=== PATIENT | male | born 1955 | race Caucasian/White ===

== ENCOUNTER 2020-05-16 14:49 | Outpatient (CLI) | payer MEDICARE, SELFPAY ==
[2020-05-18 02:52] LABS: SARS-CoV-2 RNA PCR Negative
== END 2020-05-16 14:50 | disposition home or self-care (01) ==
PROVIDERS: PCP Family Medicine; Visit Provider Family Medicine
DX: Z20.828 Contact with and (suspected) exposure to other viral communicable diseases (principal)
CPT/HCPCS: 87635; C9803; U0003

== ENCOUNTER 2020-07-10 08:07 | Outpatient (CLI) | payer MEDICARE, SELFPAY ==
[2020-07-10 08:16] LABS: Basophils Absolute Auto 0.03 K/mm3 (0.00-0.10); Basophils Percent Auto 0.5 % (0.0-1.0); Eosinophils Absolute Auto 0.19 K/mm3 (0.02-0.50); Eosinophils Percent Auto 3.5 % (1.0-6.0); Hematocrit 46.4 % (37.0-46.0); Hemoglobin 14.6 g/dL (12.4-15.3); Immature Granulocyte Absolute 0.02 K/mm3 (0.00-0.00); Immature Granulocyte Percent A 0.4 % (0.0-0.0); Lymphocytes Absolute Auto 1.46 K/mm3 (1.10-4.50); Lymphocytes Percent Auto 26.5 % (18.0-42.0); Mean Corpuscular HGB Conc 31.5 g/dL (32.0-36.0); Mean Corpuscular Hemoglobin 29.1 pg (27.0-31.0); Mean Corpuscular Volume 92.6 fL (78.0-102.0); Mean Platelet Volume 10.6 fl (8.7-11.0); Monocytes Absolute Auto 0.41 K/mm3 (0.10-0.90); Monocytes Percent Auto 7.5 % (2.0-11.0); Neutrophils Absolute Auto 3.4 K/mm3 (1.7-7.2); Neutrophils Percent Auto 61.6 % (50.0-70.0); Platelet Count Result 161 K/mm3 (150-420); Red Blood Count 5.01 M/mm3 (4.70-6.10); Red Cell Distribution Width 12.6 % (11.6-14.4); White Blood Count 5.5 K/mm3 (4.8-10.8)
[2020-07-10 09:19] LABS: Alanine Aminotransferase 22 U/L (16-63); Albumin Level 3.5 g/dL (3.4-5.0); Alkaline Phosphatase 62 U/L (46-116); Anion Gap 5 mmol/L (8-16); Aspartate Amino Transferase 20 U/L (15-37); Bilirubin,Total 0.4 mg/dL (0.00-1.00); Blood Urea Nitrogen 25 mg/dL (7-18); Calcium 8.6 mg/dL (8.5-10.1); Carbon Dioxide 32 mmol/L (21-32); Chloride 107 mmol/L (98-108); Cholesterol 198 mg/dL (0-200); Estimated Glomerular Filt Rate > 60; Glucose 83 mg/dL (70-99); HDL Direct 57 mg/dL (40-60); LDL Cholesterol Calculated 127 mg/dL (<130); Osmolality Calculated 301 mOsm/kg (285-295); Potassium 4.1 mmol/L (3.5-5.1); Sodium 144 mmol/L (136-145); Total Protein 6.1 g/dL (6.4-8.2); Triglycerides 72 mg/dL (0-150)
[2020-07-10 10:07] LABS: Thyroid Stimulating Hormone Reflex 1.49 u/IU/mL (0.36-3.74)
== END 2020-07-10 08:08 | disposition home or self-care (01) ==
LOC: CHSLAB 08:09
PROVIDERS: PCP Family Medicine; Visit Provider Family Medicine
DX: K58.9 Irritable bowel syndrome, unspecified (principal); Z82.49 Family history of ischemic heart disease and other diseases of the circulatory system; F41.9 Anxiety disorder, unspecified
CPT/HCPCS: 36415; 80053; 80061; 84443; 85025

== ENCOUNTER 2021-03-28 09:00 | Outpatient (CLI) | payer MEDICARE, SELFPAY ==
[2021-03-28 09:11] LABS: Add Urine Microscopic? NO; Appearance Urine Clear (Clear); Basophils Absolute Auto 0.04 K/mm3 (0.00-0.10); Basophils Percent Auto 0.7 % (0.0-1.0); Bilirubin Urine Negative (Negative); Blood Urine Negative (Negative); Color Urine Yellow (Yellow); Eosinophils Absolute Auto 0.16 K/mm3 (0.02-0.50); Eosinophils Percent Auto 2.8 % (1.0-6.0); Glucose Urine UA Negative (Negative); Hematocrit 45.6 % (37.0-46.0); Hemoglobin 14.7 g/dL (12.4-15.3); Immature Granulocyte Absolute 0.01 K/mm3 (0.00-0.00); Immature Granulocyte Percent A 0.2 % (0.0-0.0); Ketones Urine Negative (Negative); Leukocyte Esterase Ur Negative LEU/UL (Negative); Lymphocytes Absolute Auto 1.47 K/mm3 (1.10-4.50); Lymphocytes Percent Auto 25.9 % (18.0-42.0); Mean Corpuscular HGB Conc 32.2 g/dL (32.0-36.0); Mean Corpuscular Hemoglobin 29.1 pg (27.0-31.0); Mean Corpuscular Volume 90.3 fL (78.0-102.0); Mean Platelet Volume 10.7 fl (8.7-11.0); Monocytes Absolute Auto 0.54 K/mm3 (0.10-0.90); Monocytes Percent Auto 9.5 % (2.0-11.0); Neutrophils Absolute Auto 3.5 K/mm3 (1.7-7.2); Neutrophils Percent Auto 60.9 % (50.0-70.0); Nitrate Urine Negative (Negative); Platelet Count Result 185 K/mm3 (150-420); Protein Urine Negative (Negative); Red Blood Count 5.05 M/mm3 (4.70-6.10); Red Cell Distribution Width 13.2 % (11.6-14.4); Specific Grav Ur 1.025 (1.010-1.020); Urobilinogen Urine 0.2 mg/dL (0.2-1.0); White Blood Count 5.7 K/mm3 (4.8-10.8)
[2021-03-28 09:40] LABS: Alanine Aminotransferase 31 U/L (16-63); Albumin Level 3.5 g/dL (3.4-5.0); Alkaline Phosphatase 63 U/L (46-116); Anion Gap 9 mmol/L (8-16); Aspartate Amino Transferase 20 U/L (15-37); Bilirubin,Total 0.5 mg/dL (0.00-1.00); Blood Urea Nitrogen 29 mg/dL (7-18); Calcium 8.6 mg/dL (8.5-10.1); Carbon Dioxide 30 mmol/L (21-32); Chloride 106 mmol/L (98-108); Estimated Glomerular Filt Rate > 60; Glucose 77 mg/dL (70-99); Osmolality Calculated 304 mOsm/kg (285-295); Potassium 4.2 mmol/L (3.5-5.1); Sodium 145 mmol/L (136-145); Total Protein 6.4 g/dL (6.4-8.2)
== END 2021-03-28 09:01 | disposition home or self-care (01) ==
PROVIDERS: PCP Family Medicine; Visit Provider Family Medicine
DX: R42 Dizziness and giddiness (principal)
CPT/HCPCS: 36415; 80053; 81003; 85025

== ENCOUNTER 2021-05-02 09:59 | Outpatient (CLI) | payer MEDICARE, SELFPAY ==
--- NOTE | 2021-05-02 10:01 | ECG_ITS ---
Measurements Intervals [place] Rate: 72 P: 69 KS: 151 QRS: 32 QRSD: 94 T: 27 QT: 363 QTc: 400 Interpretive Statements SINUS RHYTHM RSR' IN V1 OR V2, PROBABLY NORMAL VARIANT VOLTAGE CRITERIA FOR LVH BORDERLINE ECG Electronically Signed On 05-02-2021 11:55:57 CDT by Damian Alanis D.O.
[2021-05-02 10:21] LABS: Basophils Absolute Auto 0.02 K/mm3 (0.00-0.10); Basophils Percent Auto 0.4 % (0.0-1.0); Eosinophils Absolute Auto 0.16 K/mm3 (0.02-0.50); Eosinophils Percent Auto 3.1 % (1.0-6.0); Hematocrit 47.2 % (37.0-46.0); Hemoglobin 14.8 g/dL (12.4-15.3); Immature Granulocyte Absolute 0.01 K/mm3 (0.00-0.00); Immature Granulocyte Percent A 0.2 % (0.0-0.0); Lymphocytes Absolute Auto 1.44 K/mm3 (1.10-4.50); Lymphocytes Percent Auto 27.7 % (18.0-42.0); Mean Corpuscular HGB Conc 31.4 g/dL (32.0-36.0); Mean Corpuscular Hemoglobin 28.6 pg (27.0-31.0); Mean Corpuscular Volume 91.3 fL (78.0-102.0); Mean Platelet Volume 11.1 fl (8.7-11.0); Monocytes Absolute Auto 0.48 K/mm3 (0.10-0.90); Monocytes Percent Auto 9.2 % (2.0-11.0); Neutrophils Absolute Auto 3.1 K/mm3 (1.7-7.2); Neutrophils Percent Auto 59.4 % (50.0-70.0); Platelet Count Result 181 K/mm3 (150-420); Red Blood Count 5.17 M/mm3 (4.70-6.10); Red Cell Distribution Width 12.8 % (11.6-14.4); White Blood Count 5.2 K/mm3 (4.8-10.8)
[2021-05-02 12:02] LABS: Alanine Aminotransferase 31 U/L (16-63); Albumin Level 3.6 g/dL (3.4-5.0); Alkaline Phosphatase 68 U/L (46-116); Anion Gap 9 mmol/L (8-16); Aspartate Amino Transferase 20 U/L (15-37); Bilirubin,Total 0.4 mg/dL (0.00-1.00); Blood Urea Nitrogen 24 mg/dL (7-18); Calcium 8.7 mg/dL (8.5-10.1); Carbon Dioxide 29 mmol/L (21-32); Chloride 105 mmol/L (98-108); Estimated Glomerular Filt Rate > 60; Glucose 74 mg/dL (70-99); Osmolality Calculated 299 mOsm/kg (285-295); Potassium 4.6 mmol/L (3.5-5.1); Sodium 143 mmol/L (136-145); Total Protein 6.4 g/dL (6.4-8.2)
[2021-05-02 12:09] LABS: Thyroid Stimulating Hormone Reflex 1.12 u/IU/mL (0.36-3.74)
== END 2021-05-02 10:00 | disposition home or self-care (01) ==
LOC: CHSLAB 10:01
PROVIDERS: PCP Family Medicine; Visit Provider Family Medicine
DX: R42 Dizziness and giddiness (principal); F41.9 Anxiety disorder, unspecified
CPT/HCPCS: 36415; 80053; 84443; 85025; 93005

== ENCOUNTER 2021-06-04 09:35 | Outpatient (CLI) | payer MEDICARE, SELFPAY ==
--- NOTE | 2021-06-04 10:11 | ECHO_ITS ---
Patient Info Name: Arjun Sheppard Age: 66 years : 1955 Gender: Male Ht: 69 in Wt: 150 lbs BSA: 1.82 m2 HR: 65 bpm BP: 132 / 86 mmHg Heart Rhythm: Sinus Rhythm Exam Date: 06/04/2021 10:29 AM Exam Location: [facility] Pulmonary Patient Status: Outpatient Admit Date: 06/04/2021 Staff Ordering Physician: Damian Alanis DO Swift Tender: ALEJANDRO Attending Provider: Damian Alanis DO Exam Type: CA echo doppler color flow Study Info Indications R94.31 - Abnormal electrocardiogram ECG EKG Complete two-dimensional, color flow and Doppler transthoracic echocardiogram is performed. Summary 1. Complete two-dimensional, color flow and Doppler transthoracic echocardiogram is performed. 2. Left ventricular chamber dimension is normal. 3. Left ventricular systolic function is normal, estimated at 60-65%. 4. The left ventricular diastolic function is grade I diastolic dysfunction. 5. E/e' 7 is not elevated. 6. There is trace aortic valve regurgitation. 7. No pulmonary hypertension, estimated pulmonary arterial systolic pressure is 22 mmHg. Left Ventricle E/e' 7 is not elevated. Left ventricular chamber dimension is normal. Left ventricular systolic function is normal, estimated at 60-65%. The left ventricular diastolic function is grade I diastolic dysfunction. Right Ventricle Right ventricular chamber dimension is normal. Right ventricular systolic function is normal. Left Atria Left atrial chamber dimension is normal. Right Atria Right atrial chamber dimension is normal. Aortic Valve The aortic valve is trileaflet. There is no aortic valve stenosis. There is trace aortic valve regurgitation. Pulmonic Valve There is no pulmonic regurgitation. Mitral Valve There is no mitral valve stenosis. There is no mitral valve regurgitation. Tricuspid Valve There is no tricuspid valve regurgitation. No pulmonary hypertension, estimated pulmonary arterial systolic pressure is 22 mmHg. Pericardium/Pleural There is no pericardial effusion. Inferior Vena Cava Normal inferior vena cava with >50% collapse upon inspiration consistent with normal right atrial pressure, 5 mmHg. Aorta The aortic root size at the sinus of Valsalva is normal. Left Ventricular Outflow Tract Name Value Normal LVOT 2D LVOT Diameter 2.0 cm LVOT Doppler LVOT Peak Gradient 2 mmHg LVOT Mean Gradient 1 mmHg LVOT VTI 22 cm LVOT VTI/AV VTI Ratio 0.8 LVOT Stroke Volume 69 ml LVOT CO 10.7 l/min LVOT CI 5.9 l/min/m2 Pulmonic Valve Name Value Normal PV Doppler PV Peak Gradient 2 mmHg PV Regurgitation Doppler
== END 2021-06-04 09:36 | disposition home or self-care (01) ==
PROVIDERS: PCP Family Medicine; Visit Provider Internal Medicine Cardiovascular Disease
DX: R94.31 Abnormal electrocardiogram [ECG] [EKG] (principal)
CPT/HCPCS: 93306

== ENCOUNTER 2021-08-06 08:30 | Outpatient (RCR) | payer MEDICARE, SELFPAY ==
--- NOTE | 2021-08-06 08:55 | PTOPEVAL ---
Thank you for referring Arjun Sheppard to [facility] The patient is scheduled to be seen for therapy? __1__x/week for 1 additional visit. Please review, sign, date and return this plan of care DERICK. I agree with and certify that the following plan of care is medically necessary. Referring Physician Date Admitting Provider: Attending Provider: Gilmar Rios MD Referring Provider: *PT Outpatient Evaluation Start: 08/06/21 07:55 Freq: Status: Active Protocol: Document 08/06/21 08:02 MERCEDES (Rec: 08/06/21 08:55 MERCEDES [id number]) Therapy Assessment Status Assessment Status Assessment Status Evaluation Evaluation Information Problem Diagnosis dizziness, giddiness Onset 11/26/20 Subjective Information Pt. recalls occassional bouts Query Text:As Reported By Patient/ of dizziness that has occurred Family about 4 times this year. His first episode was in November and last was in June. Pt. reports that most episodes takes place while looking at a computer screen or T.V. screen. He states that dizziness is severe and brief. He reports that he has vomitted from dizziness before . Pt. reports that he has no significant cardiac or BP issues. He reports that his goal for therpay is to decrease the dizziness. Prior Level of Function Comments Additional Prior Level of Function Pt. recalls no recent falls Comments due to dizziness. He had recent eye check which was negative for any visual issues . Pain Assessment Timing of Pain Assessment Timing of Pain Assessment Pre-Treatment Self Report Self Report Pain Level 0 Pain Score Pain Score 0: Self Report Cervical and Lumbar ROM Cervical ROM Cervical Flexion (0-60) 50 Query Text:Active in Degrees Cervical Extension (0-70) 50 Query Text:Active in Degrees Cervical Lateral Flexion Right (0-50) 35 Query Text:Active in Degrees Cervical Lateral Flexion Left (0-50) 35 Query Text:Active in Degrees Cervical Rotation Right (0-90) 70 Query Text:Active in Degrees Cervical Rotation Left (0-90) 70 Query Text:Active in Degrees Vestibular Evaluation Vestibular Medical Information Past Vestibular History Visual Issues Recent Symptoms
== END 2021-08-12 14:27 | disposition home or self-care (01) ==
LOC: CHSPT 08:30
PROVIDERS: PCP Family Medicine; Visit Provider Family Medicine
DX: R42 Dizziness and giddiness (principal)
CPT/HCPCS: 97112; 97161

== ENCOUNTER 2021-10-08 08:38 | Outpatient (CLI) | payer MEDICARE, SELFPAY ==
--- NOTE | ~2021-10-08 | NM_ITS ---
EXAMINATION: NM jorge stress w perfusion DATE: 10/08/2021 11:17 INDICATION: Ventricular tachycardia TECHNIQUE: Rest images were obtained following intravenous administration of 9.44 mCi Tc99m tetrofosm in (Myoview). The patient was infused intravenously with Lexiscan (Regadenoson). Then, 30.8 mCi Tc99m tetrofosmin (Myoview) was administered intravenously, and stress images were obtained. Data was kiah nstructed into short axis and horizontal and vertical long axis SPECT images. Gated SPECT images were also obtained. COMPARISON: None. FINDINGS: There is no definite reversible or fixed perfusion abnormality to suggest ischemia or infar ction. There is normal left ventricular chamber size, wall motion and ejection fraction. Left ventr icular ejection fraction measures >70%. IMPRESSION: 1. Normal myocardial perfusion at rest and during stress. 2. Left ventricular ejection fraction measuring >70%. Reviewed, dictated and finalized at location A. ITY COMPLIANCE MANAGER
--- NOTE | 2021-10-08 08:55 | EST_ITS ---
Patient Info Name: Arjun Sheppard Age: 66 years : 1955 Gender: Male Ht: 69 in Wt: 147 lbs BSA: 1.80 m2 HR: 65 bpm BP: 140 / 89 mmHg Heart Rhythm: Sinus Rhythm Exam Date: 10/08/2021 9:42 AM Exam Location: [facility] Stress Patient Status: Outpatient Admit Date: 10/08/2021 Staff Ordering Physician: Damian Alanis DO Attending Provider: Damian lAanis DO Exercise Technologist: Yeni Kincaid CT Exercise Physician: Damian Alanis DO Exam Type: CA stress jorge w NM Study Info Indications I47.2 - Ventricular tachycardia A regadenoson stress test was performed. Summary 1. 1. Negative lexiscan stress test for ischemic ST changes by ECG criteria. 2. 2. Stable hemodynamics throughout the test. 3. 3. Nuclear scan to follow and will be reported separately. Please correlate with it. 4. 4. Patient informed of the above results. Protocol: Lexiscan Stress ECG Details Stage: REST Duration (min): 0 min : 54 sec HR (bpm): 65 SBP (mmHg): 127 DBP (mmHg): 95 Stage: REST Duration (min): 6 min : 57 sec HR (bpm): 62 SBP (mmHg): 127 DBP (mmHg): 95 Stage: STAGE 1 Duration (min): 1 min : 0 sec HR (bpm): 65 SBP (mmHg): 140 DBP (mmHg): 89 Stage: RECOVERY Duration (min): 1 min : 0 sec HR (bpm): 88 SBP (mmHg): 140 DBP (mmHg): 89 Stage: RECOVERY Duration (min): 2 min : 0 sec HR (bpm): 86 SBP (mmHg): 140 DBP (mmHg): 89 Stage: RECOVERY Duration (min): 2 min : 53 sec HR (bpm): 83 SBP (mmHg): 129 DBP (mmHg): 82 Rest HR: 62 bpm Peak HR: 88 bpm Rest Sys BP: 127 mmHg Peak Sys BP: 140 mmHg Max Pred HR: 153 bpm % Max Pred HR: 58 % Target HR: 130 bpm Max RPP: 12,320 bpm*mmHg Termination Reason: Completed protocol Cardiac Symptoms: Shortness of breath Total Time: 1 min : 0 sec Rest Maldonado BP: 95 mmHg Peak Maldonado BP: 89 mmHg Total Dose: 0.4 mg Resting ECG Sinus rhythm. Stress ECG No ST changes. Arrhythmias None. Report Signatures
== END 2021-10-08 08:39 | disposition home or self-care (01) ==
LOC: ANHIMG 08:47
PROVIDERS: Visit Provider Internal Medicine Cardiovascular Disease
DX: I47.2 Ventricular tachycardia (principal)
CPT/HCPCS: 78452; 93017; A9502; J2785

== ENCOUNTER 2021-12-28 15:33 | Emergency (ER) | payer MEDICARE, SELFPAY ==
--- NOTE | ~2021-12-28 | XR_ITS ---
EXAMINATION: XR chest 2V DATE: 12/28/2021 16:33 INDICATION: Chest pain. TECHNIQUE: Frontal and lateral views of the chest were obtained. COMPARISON: CT abdomen and pelvis 02/13/2017 FINDINGS: The chest demonstrates clear lungs without pneumonia, pleural effusion, or pneumothorax. Th e heart size is normal. IMPRESSION: 1. No acute cardiopulmonary disease. Reviewed, dictated and finalized at location E.
--- NOTE | 2021-12-28 15:38 | ECG_ITS ---
Measurements Intervals [place] Rate: 72 P: 74 VT: 154 QRS: 24 QRSD: 107 T: 58 QT: 383 QTc: 419 Interpretive Statements SINUS RHYTHM BASELINE ARTIFACT POSSIBLE LEFT ATRIAL ENLARGEMENT [-0.1mV P-WAVE IN V1/V2] BORDERLINE ECG COMPARED TO ECG 05/02/2021 10:18:31 NO SIGNIFICANT CHANGES Electronically Signed On 12-28-2021 16:33:16 CDT by Bhaskar Davenport M.D.
[2021-12-28 15:44] VITALS: BP 130/83; PULSE 68; RESP 16; TEMP 36.4; O2SAT 100
[2021-12-28] MEDS: ALPRAZolam (*CRX) 0.5 MG TABLET PO (15:56)
[2021-12-28 16:08] LABS: Basophils Absolute Auto 0.02 K/mm3 (0.00-0.10); Basophils Percent Auto 0.4 % (0.0-1.0); Eosinophils Absolute Auto 0.13 K/mm3 (0.02-0.50); Eosinophils Percent Auto 2.4 % (1.0-6.0); Hematocrit 46.2 % (37.0-46.0); Hemoglobin 14.7 g/dL (12.4-15.3); Immature Granulocyte Absolute 0.02 K/mm3 (0.00-0.00); Immature Granulocyte Percent A 0.4 % (0.0-0.0); Lymphocytes Absolute Auto 1.62 K/mm3 (1.10-4.50); Lymphocytes Percent Auto 30.3 % (18.0-42.0); Mean Corpuscular HGB Conc 31.8 g/dL (32.0-36.0); Mean Corpuscular Hemoglobin 29.2 pg (27.0-31.0); Mean Corpuscular Volume 91.8 fL (78.0-102.0); Mean Platelet Volume 11.3 fl (8.7-11.0); Monocytes Absolute Auto 0.41 K/mm3 (0.10-0.90); Monocytes Percent Auto 7.7 % (2.0-11.0); Neutrophils Absolute Auto 3.2 K/mm3 (1.7-7.2); Neutrophils Percent Auto 58.8 % (50.0-70.0); Platelet Count Result 166 K/mm3 (150-420); Red Blood Count 5.03 M/mm3 (4.70-6.10); White Blood Count 5.4 K/mm3 (4.8-10.8)
[2021-12-28 16:23] LABS: Partial Thromboplastin Time 25.7 SEC (23.90-30.70); Prothrombin Time 10.7 Seconds (9.50-12.10)
[2021-12-28 16:29] LABS: Alanine Aminotransferase 24 U/L (16-63); Albumin Level 3.3 g/dL (3.4-5.0); Alkaline Phosphatase 67 U/L (46-116); Anion Gap 2 mmol/L (8-16); Aspartate Amino Transferase 23 U/L (15-37); Bilirubin,Total 0.2 mg/dL (0.00-1.00); Blood Urea Nitrogen 28 mg/dL (7-18); Calcium 8.8 mg/dL (8.5-10.1); Carbon Dioxide 32 mmol/L (21-32); Chloride 104 mmol/L (98-108); Estimated CRCL calculation 65 ml/min; Estimated Glomerular Filt Rate > 60; Glucose 117 mg/dL (70-99); Lipase 134 U/L (73-393); NT Pro B Type Natriuretic Pept 137 pg/mL (0-125); Osmolality Calculated 292 mOsm/kg (285-295); Sodium 138 mmol/L (136-145); Total Protein 6.3 g/dL (6.4-8.2); Troponin I 8.1 ng/L (0.00-60.4)
--- NOTE | 2021-12-28 16:42 | ED.CHESTPAIN ---
HPI - Chest Pain General Chief Complaint: Chest Pain Stated Complaint: chest pains for a few days Time Seen by Provider: 12/28/21 15:43 Source: patient Mode of arrival: ambulatory Limitations: no limitations History of Present Illness HPI narrative: this is a 66-year-old gentleman with history of anxiety hypertension has been having chest pain for the last couple of weeks and had had chest pain earlier this afternoon, with no radiation of his pain occurred at rest patient appears anxious and states that he does have anxiety. No shortness of breath no diaphoresis no nausea or vomiting no fever chills no shortness of breath. Patient had a negative stress test Lexiscan stress test performed late September which was normal. MD complaint: chest pain and chest discomfort Onset (ago): week(s) Timing of current episode: episodic Prior episodes: Yes Onset: during rest Pain location: substernal Pain radiation: none Severity: mild Quality: aching Relieving factors: medication-other and other ( anti anxiety medication) Related Data Allergies Allergy/AdvReac Type Severity Reaction Status Date / Time No Known Allergies Allergy Verified 12/28/21 15:48 Review of Systems Review of Systems: All systems reviewed & are unremarkable except as noted in HPI and below PMFSH Past Medical History Medical History Asthma Dizziness LOAN (generalized anxiety disorder) IBS (irritable bowel syndrome) Surgical History Surgical History H/O hernia repair Family History Family History Other Heart disease Hypertension Pancreatic carcinoma Social History Social History Alcohol intake: never Substance use: never 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[employer] Gender identity (if verbalized by the patient): Male Exam Const: General: cooperative, healthy appearing, comfortable, no acute distress and well developed HENMT: Head: normal to inspection Ears: hearing grossly normal bilaterally General nose exam: Normal external nose present Face and sinus: normal facial exam Mouth: Yes Normal oral and palatal mucosa present Teeth and gingiva: dentition normal Throat: posterior oropharynx normal Eyes: General: appearance normal, both eyes and all related structures Eyelids: eyelids normal Conjunctivae: conjunctivae normal Sclera: sclerae normal Neck: Neck: normal visual inspection, full ROM, no lymphadenopathy and no meningeal signs Chest: Chest palpation & inspection: normal inspection of the chest and normal palpation of entire chest wall Resp: Effort & Inspection: normal respiratory effort and able to speak in complete sentences Auscultation: clear to auscultation bilaterally Cardio: Jugular venous distension: no JVD Palpation: normal PMI Rate: regular rate Rhythm: regular rhythm Heart sounds: S1 normal heart sound present and S2 normal heart sound present GI: Inspection: normal to inspection Percussion: Yes normal to percussion Back/Spine/Pelvis: Back: no CVA tenderness Skin: General skin exam: normal color and no rashes or lesions noted Neuro: General: oriented to person, oriented to place, oriented to time, patient oriented x3 and gait normal Psych: Appearance: grossly normal Affect: Anxious affect present Course Course Emergency Course: Patient received 0.5mg of Xanax, currently not having any chest pain, x-ray and lab findings as well as EKG were reviewed with patient, anxiety has improved after reassessment. Vital Signs Vital signs: Vital Signs Temperature 36.4 C L 12/28/21 15:44 Pulse Rate 68 12/28/21 15:44 Respiratory Rate 16 12/28/21 15:44 Blood Pressure 130/83 12/28/21 15:44 Pulse Oximetry 100 12/28/21 15:44 Temperature 36.4 C L 12/28/21 15:44 Pulse R
[2021-12-28 16:49] VITALS: BP 119/87; PULSE 66; RESP 16; TEMP 36.3; O2SAT 100
== END 2021-12-28 16:56 | disposition home or self-care (01) ==
PROVIDERS: Emergency Provider Emergency Medicine; PCP Family Medicine
DX: F41.1 Generalized anxiety disorder (principal); R07.89 Other chest pain
CPT/HCPCS: 36415; 71046; 80053; 83690; 83880; 84484; 85025; 85380; 85610; 85730; 93005; 99284; A9270

== ENCOUNTER 2022-10-16 09:24 | Outpatient (CLI) | payer MEDICARE, SELFPAY ==
[2022-10-16 10:13] LABS: Alanine Aminotransferase 29 U/L (16-63); Albumin Level 3.4 g/dL (3.4-5.0); Alkaline Phosphatase 68 U/L (46-116); Anion Gap 5 mmol/L (8-16); Aspartate Amino Transferase 20 U/L (15-37); Bilirubin,Total 0.5 mg/dL (0.00-1.00); Blood Urea Nitrogen 25 mg/dL (7-18); Calcium 8.6 mg/dL (8.5-10.1); Carbon Dioxide 35 mmol/L (21-32); Chloride 103 mmol/L (98-108); Cholesterol 196 mg/dL (0-200); Estimated Glomerular Filt Rate > 60; Glucose 91 mg/dL (70-99); HDL Direct 51 mg/dL (40-60); LDL Cholesterol Calculated 124 mg/dL (<130); Osmolality Calculated 300 mOsm/kg (285-295); Potassium 4.5 mmol/L (3.5-5.1); Sodium 143 mmol/L (136-145); Total Protein 6.3 g/dL (6.4-8.2); Triglycerides 107 mg/dL (0-150)
== END 2022-10-16 09:25 | disposition home or self-care (01) ==
LOC: CHSLAB 09:26
PROVIDERS: PCP Family Medicine; Visit Provider Internal Medicine Cardiovascular Disease
DX: I47.1 Supraventricular tachycardia (principal); R42 Dizziness and giddiness; R94.31 Abnormal electrocardiogram [ECG] [EKG]; I47.20 Ventricular tachycardia, unspecified; Z13.6 Encounter for screening for cardiovascular disorders
CPT/HCPCS: 36415; 80053; 80061

== ENCOUNTER 2023-01-29 10:11 | Outpatient (CLI) | payer MEDICARE, SELFPAY ==
[2023-01-29 11:02] LABS: Prostate Specific Antigen 2.1 ng/mL (< OR = 4.0)
== END 2023-01-29 10:12 | disposition home or self-care (01) ==
LOC: CHSLAB 10:12
PROVIDERS: PCP Family Medicine; Visit Provider Family Medicine
DX: R35.1 Nocturia (principal); Z12.5 Encounter for screening for malignant neoplasm of prostate
CPT/HCPCS: 36415; 84153; G0103

== ENCOUNTER 2023-02-03 07:51 | Outpatient (CLI) | payer MEDICARE, SELFPAY ==
--- NOTE | ~2023-02-03 | US_ITS ---
US retroperitoneal limited 02/03/2023 08:18 Procedure: Realtime transabdominal ultrasound of the kidneys and bladder. Indication: Frequent urination Comparison: CT dated 02/13/2017 Findings: Renal echotexture is normal bilaterally without hydronephrosis, contour deforming mass or r enal calculus. There are 2 small right renal cysts measuring up to 2.1 cm. The right kidney measures 10.2 cm and left kidney measures 9.4 cm. There are bladder diverticula. There is irregular soft tissu e involving the inferior wall of the bladder measuring 4.6 x 2.7 x 2.4 cm which may represent a promi nent prostate gland, although transitional cell carcinoma is not excluded. Recommend consultation. Bladder wall is thickened measuring 1 cm. Along the inferior aspect of the bladder there is a second hypoechoic mass measuring 2.2 cm which may represent a complicated bladder diverticulum. Impression: 1: Irregular hypoechoic masslike soft tissue inferior wall of the bladder which may represent an enla rged prostate gland or transitional cell tumor of the bladder. Recommend consultation. 2: Bladder wall thickening. 3: Bladder diverticula with bladder wall thickening. Hypoechoic 2.2 cm mass adjacent to the bladder i nferiorly which may represent a complicated bladder diverticula. Consider correlation with contrast-e nhanced CT urogram. Reviewed, dictated and finalized at location L. Impression: 1: Irregular hypoechoic masslike soft tissue inferior wall of the bladder which may represent an enlarged prostate gland or transitional cell tumor of the ivan dder. Recommend consultation. 2: Bladder wall thickening. 3: Bladder diverticula with bladder wall thickening. Hypoechoic 2.2 cm mass adj acent to the bladder inferiorly which may represent a complicated bladder diver ticula. Consider correlation with contrast-enhanced CT urogram.
== END 2023-02-03 07:52 | disposition home or self-care (01) ==
LOC: CHSIMG 07:52
PROVIDERS: PCP Family Medicine; Visit Provider Family Medicine
DX: R33.9 Retention of urine, unspecified (principal); R35.0 Frequency of micturition; N32.9 Bladder disorder, unspecified; N32.3 Diverticulum of bladder
CPT/HCPCS: 76775

== ENCOUNTER 2023-03-17 09:02 | Outpatient (CLI) | payer MEDICARE, SELFPAY ==
[2023-03-17 09:16] LABS: Basophils Absolute Auto 0.03 K/mm3 (0.00-0.10); Basophils Percent Auto 0.6 % (0.0-1.0); Eosinophils Absolute Auto 0.25 K/mm3 (0.02-0.50); Hematocrit 44.2 % (37.0-46.0); Immature Granulocyte Absolute 0.02 K/mm3 (0.00-0.00); Immature Granulocyte Percent A 0.4 % (0.0-0.0); Lymphocytes Absolute Auto 1.47 K/mm3 (1.10-4.50); Lymphocytes Percent Auto 29.3 % (18.0-42.0); Mean Corpuscular HGB Conc 31.7 g/dL (32.0-36.0); Mean Corpuscular Hemoglobin 29.1 pg (27.0-31.0); Mean Corpuscular Volume 91.9 fL (78.0-102.0); Mean Platelet Volume 10.8 fl (8.7-11.0); Monocytes Absolute Auto 0.45 K/mm3 (0.10-0.90); Neutrophils Absolute Auto 2.8 K/mm3 (1.7-7.2); Neutrophils Percent Auto 55.7 % (50.0-70.0); Platelet Count Result 161 K/mm3 (150-420); Red Blood Count 4.81 M/mm3 (4.70-6.10)
[2023-03-17 09:43] LABS: Alanine Aminotransferase 25 U/L (16-63); Albumin Level 3.3 g/dL (3.4-5.0); Alkaline Phosphatase 65 U/L (46-116); Anion Gap 5 mmol/L (8-16); Aspartate Amino Transferase 25 U/L (15-37); Bilirubin,Total 0.4 mg/dL (0.00-1.00); Blood Urea Nitrogen 25 mg/dL (7-18); Calcium 8.8 mg/dL (8.5-10.1); Carbon Dioxide 32 mmol/L (21-32); Chloride 106 mmol/L (98-108); Estimated Glomerular Filt Rate > 60; Glucose 95 mg/dL (70-99); Osmolality Calculated 300 mOsm/kg (285-295); Potassium 4.3 mmol/L (3.5-5.1); Sodium 143 mmol/L (136-145); Total Protein 6.1 g/dL (6.4-8.2)
== END 2023-03-17 09:03 | disposition home or self-care (01) ==
LOC: CHSLAB 09:04
PROVIDERS: PCP Nurse Practitioner Family; Visit Provider Nurse Practitioner Family
DX: K64.9 Unspecified hemorrhoids (principal)
CPT/HCPCS: 36415; 80053; 85025

== ENCOUNTER 2023-03-18 08:50 | Outpatient (CLI) | payer MEDICARE, SELFPAY ==
[2023-03-18 08:58] LABS: Occult Blood Negative (Negative)
== END 2023-03-18 08:51 | disposition home or self-care (01) ==
LOC: CHSLAB 08:52
PROVIDERS: PCP Nurse Practitioner Family; Visit Provider Nurse Practitioner Family
DX: K64.9 Unspecified hemorrhoids (principal)
CPT/HCPCS: 82272

== ENCOUNTER 2025-01-25 09:07 | Outpatient (CLI) | payer MEDICARE, SELFPAY ==
[2025-01-25 09:16] LABS: Basophils Absolute Auto 0.03 K/mm3 (0.00-0.10); Basophils Percent Auto 0.5 % (0.0-1.0); Eosinophils Absolute Auto 0.31 K/mm3 (0.02-0.50); Eosinophils Percent Auto 5.3 % (1.0-6.0); Hematocrit 46.2 % (37.0-46.0); Hemoglobin 14.4 g/dL (12.4-15.3); Immature Granulocyte Absolute 0.02 K/mm3 (0.00-0.00); Immature Granulocyte Percent A 0.3 % (0.0-0.0); Lymphocytes Absolute Auto 1.49 K/mm3 (1.10-4.50); Lymphocytes Percent Auto 25.6 % (18.0-42.0); Mean Corpuscular HGB Conc 31.2 g/dL (32-36); Mean Corpuscular Hemoglobin 28.8 pg (27.0-31.0); Mean Corpuscular Volume 92.4 fL (78.0-102.0); Mean Platelet Volume 10.7 fl (8.7-11.0); Monocytes Absolute Auto 0.56 K/mm3 (0.10-0.90); Monocytes Percent Auto 9.6 % (2.0-11.0); Neutrophils Absolute Auto 3.42 K/mm3 (1.70-7.20); Neutrophils Percent Auto 58.7 % (50.0-70.0); Platelet Count Result 183 K/mm3 (150-420); Red Cell Distribution Width 13.1 % (11.6-14.4); White Blood Count 5.8 K/mm3 (4.8-10.8)
[2025-01-25 09:21] LABS: Add Urine Microscopic? NO; Appearance Urine Clear (Clear); Bilirubin Urine Negative (Negative); Blood Urine Negative (Negative); Color Urine Yellow (Yellow); Glucose Urine UA Negative (Negative); Ketones Urine Negative (Negative); Leukocyte Esterase Ur Negative (Negative); Nitrate Urine Negative (Negative); Protein Urine Negative (Negative); Specific Grav Ur 1.015 (1.010-1.020); Urobilinogen Urine 0.2 mg/dL (0.2-1.0)
--- OUTSIDE RECORDS SUMMARY | 2025-01-25 09:40 | XMS_ITS | Continuity of Care Document ---
Author Organization [facility] Address [address] [place] [address] [address] [place] [address] Phone Care Team Providers Care Matrix Inspector Name Role Phone Alena Foss Unavailable Unavailable Procedures Procedure Date Eye Exam & Treatment Refraction Progressive Lens, Plastic Frames Deluxe Tax - Medical Eye Exam & Treatment Refraction Advance Directives Directive Yes / No Effective Date File Name No Information Encounters Encounter Description Practice Location Reason(s) For Visit Diagnoses Date Provider Providers Copied on Encounter [facility], [address] [place] [address] [address], [place], [place], [id number], tel:[phone] [facility] No Information [address] Prudence Carvajal. [address] , [address], [place], [address], [place]. tel:[phone] [facility], [address] [place] [address] [address], [place], [place], [id number], [place] tel:[phone] [facility] No Information [facility] . [address] [facility], [facility] [address], [place], [place], [id number], [place]. tel:[phone] Referring Provider: Alena Viveros, [address], [place], [address]. tel:[phone] sulting Provider: Andra Oneil, [address] [place], [address]. tel:[phone] [facility], [address], [place], [place], [id number], [place] tel:[phone] [facility] No Information [address] Prudence Monteiron. [address], [address], [place], [address], [place]. tel:[phone] Family History Family Member Type Diagnosis Age At Onset No Information Payers Payer name Insurance type Covered green party ID Authoriza tion(s) No Information Social History Type Description Quantity Date Captured Comments Sex Male Smoking Status No Information Chief Complaint And Reason For Visit No Information Reason For Referral Reason For Referral No Information History Of Present Illness Encounter Date Complaint History Of Prese nt Illness No Information Functional Status Date Functional Assessmen t No Information Instructions Date Instruction Additional Infor mation No Information Assessments Type Assessment Date No Information Patient Care Teams Name Effective Dates (start - stop) Status Members No Information
--- OUTSIDE RECORDS SUMMARY | 2025-01-25 09:40 | XMS_ITS | Clinical Summary ---
Author Organization [facility] Address [address] [place] [address] Care Team Providers Care Tube Pusher Name Role Phone Unavailable Primary Care Provider Unavailabl e Social History Tobacco Use Types Packs/Day Years Used Date Smoking Tobacco: Never Assessed Sex and Gender Information Value Date Recorded Sex Assigned at Not on file Legal Sex Male 8:47 PM CDT Gender Identity Not on file Sexual Orientation Not on file Last Filed Vital Signs Vital Sign Reading Time Taken Comments Blood Pressure - - Pulse - - Temperature - - Respiratory Rate - - Oxygen Saturation - - Inhaled Oxygen Concentration - - Weight 63.5 kg (140 lb) 12/29/2014 9:16 AM CDT Height 175.3 cm (5' 9 ) 12/29/2014 9:16 AM CDT Body Mass Index 20.67 12/29/2014 9:16 AM CDT Plan of Treatment Health Maintenance Due Date Last Done Comments Colorectal Cancer Screening Colonoscopy (10 Years) 1955 Hepatitis C 01/13/1972 DTaP, Tdap and Td Vaccines ( 1 - Tdap) 1973 Pneumococcal Vaccine: 50+ Ye ars (1 of 1 - PCV) 01/13/2004 Zoster Vaccines (1 of 2) 01/13/2004 COVID-19 Vaccine ( - 2023-2 5 season) 2024 RSV Immunization or 60+ Years (1 - 1-dose 75+ series) 2029 Meningococcal B Vaccine Aged Out No l onger eligible based on patient's age to complete this topic Meningococcal Vaccine Aged Out No isis lanie eligible based on patient's age to complete this topic RSV Immunizations Under 20 Months Aged Out No longer eligible based on patient's age to complete this topic
[2025-01-25 10:20] LABS: Alanine Aminotransferase 19 U/L (16-63); Albumin Level 3.5 g/dL (3.4-5.0); Alkaline Phosphatase 89 U/L (46-116); Aspartate Amino Transferase 14 U/L (15-37); Bilirubin,Total 0.6 mg/dL (0.00-1.00); Blood Urea Nitrogen 27 mg/dL (7-18); Calcium 9.1 mg/dL (8.5-10.1); Chloride 106 mmol/L (98-108); Estimated Glomerular Filt Rate > 60; Glucose 84 mg/dL (70-99); Lipase 52 U/L (16-77); Osmolality Calculated 306 mOsm/kg (285-295); Potassium 4.5 mmol/L (3.5-5.1); Sodium 146 mmol/L (136-145); Total Protein 6.4 g/dL (6.4-8.2)
[2025-01-25 10:25] LABS: Anion Gap 7 mmol/L (4-12); Carbon Dioxide 33 mmol/L (21-32)
[2025-01-25 10:28] LABS: CRP < 0.5 mg/dL (0.0-0.9)
== END 2025-01-25 09:08 | disposition home or self-care (01) ==
LOC: CHSLAB 09:07
PROVIDERS: PCP Family Medicine; Visit Provider Family Medicine
DX: R10.9 Unspecified abdominal pain (principal)
CPT/HCPCS: 36415; 80053; 81003; 83690; 85025; 86140